=== PATIENT | male | born 1980 | race Asian ===

== ENCOUNTER 2018-11-21 18:32 | Emergency (ER) | payer MEDICAID ==
[~2018-11-21] VITALS: Ht 167.6 cm; Wt 63.6 kg
[~2018-11-21 18:32] MED LIST: EPIN0.3P8 IM; NO HOME MEDS
[2018-11-21] MEDS ORDERED: methylPREDNISolone sod succ 125mg/2ml vial IV ONE (19:40)
[2018-11-21] MEDS ORDERED: diphenhydrAMINE 50 mg/ml inj IV ONE (19:40)
[2018-11-21] MEDS ORDERED: normal saline 1000ML IV soln IVB ONE (19:40)
[2018-11-21] MEDS ORDERED: famotidine/PF 10 mg/ml inj IV ONE (19:40)
[2018-11-21] MEDS ORDERED: diphenhydrAMINE 25mg capsule PO ONE (19:55)
[2018-11-21] MEDS ORDERED: predniSONE 20 mg tablet PO ONE (19:55)
[2018-11-21 20:07] VITALS: BP 136/101
== END 2018-11-21 20:31 | disposition home or self-care (01) ==
LOC: ER 18:33
DX: T63.441A Toxic effect of venom of bees, accidental (unintentional), initial encounter (principal); L53.9 Erythematous condition, unspecified; Z91.030 Bee allergy status; Z79.899 Other long term (current) drug therapy; Z72.89 Other problems related to lifestyle; Y92.89 Other specified places as the place of occurrence of the external cause
CPT/HCPCS: 99282; J1200; J2930; J3490; J7512